=== PATIENT | female | born 1940 | race Caucasian/White ===

== ENCOUNTER 2021-07-28 01:29 | Emergency (ER) | payer MEDICARE, MEDICAID ==
[2021-07-28 01:37] VITALS: BP 144/63; PULSE 67
[2021-07-28] MEDS ORDERED: Lidocaine 1% with EPINEPHrine 1:100,000 50 ML MDV SUBCUT STA (01:55)
== END 2021-07-28 03:50 | disposition home or self-care (01) ==
LOC: JP.ED 01:29
DX: S01.511A Laceration without foreign body of lip, initial encounter (principal); S09.90XA Unspecified injury of head, initial encounter; I10 Essential (primary) hypertension; Z86.16 Personal history of COVID-19; Z79.899 Other long term (current) drug therapy; Z79.82 Long term (current) use of aspirin; Z88.0 Allergy status to penicillin; Z91.018 Allergy to other foods; W01.10XA Fall on same level from slipping, tripping and stumbling with subsequent striking against unspecified object, initial encounter
CPT/HCPCS: 12001; 12011; 70450; 70486; 72125; 99284-25; 99285

== ENCOUNTER 2024-12-19 13:33 | Emergency (ER) | payer MEDICAID, MEDICARE ==
[2024-12-19] MEDS: Ondansetron 4 MG/2 ML SDV IVPUSH ONE (14:40)
[2024-12-19 14:44] LABS: BASOPHILS ABSOLUTE AUTO 0.03 K/uL (0.00-0.10); BASOPHILS PERCENT AUTO 0.4 % (0.1-1.3); EOSINOPHILS ABSOLUTE AUTO 0.01 K/uL (0.00-0.40); EOSINOPHILS PERCENT AUTO 0.1 % (0.0-5.4); IMMATURE GRAN ABSOLUTE AUTO 0.03 K/uL (0.00-0.23); IMMATURE GRAN PERCENT AUTO 0.4 % (0.0-0.7); LYMPHOCYTES ABSOLUTE AUTO 0.48 K/uL (0.8-3.3); LYMPHOCYTES PERCENT AUTO 6.1 % (11.4-47.7); MONOCYTES ABSOLUTE AUTO 0.40 K/uL (0.20-0.90); MONOCYTES PERCENT AUTO 5.1 % (3.3-12.6); NEUTROPHILS ABSOLUTE AUTO 6.91 K/uL (1.0-7.6); NEUTROPHILS PERCENT AUTO 87.9 % (40.0-78.1); PLATELET COUNT,PLT 122 K/uL (130-375); RED BLOOD CELL COUNT 3.99 M/uL (3.77-5.24); WHITE BLOOD CELL COUNT,WBC 7.9 K/uL (3.2-11.0)
[2024-12-19 15:06] LABS: BLOOD UREA NITROGEN,BUN 15.0 mg/dL (7-18); CARBON DIOXIDE,CO2 28.0 mmol/L (21-32); CHLORIDE,CL 90.0 mmol/L (100-108); CREATININE 0.9 mg/dL (0.6-1.0); EST CRCL DRUG DOSING (CG) 39.87 mL/min; ESTIMATED GFR 64.0 mL/min (>60); GLUCOSE RANDOM 129.0 mg/dL (74-106); POTASSIUM,K 3.8 mmol/L (3.6-5.2); SODIUM,NA 129.0 mmol/L (140-148); TROPONIN I HIGH SENSITIVITY 28.5 pg/mL (<=60.3)
[2024-12-19] MEDS: Sodium Chloride 0.9% 10 ML Syringe FLUSH ONE (16:33)
[2024-12-19] MEDS: Iopamidol 612 MG/ML 100 ML Bottle IV PRN (16:33)
[2024-12-19] MEDS: diphenhydrAMINE 50 MG/ML SDV IVPUSH ONE (17:20)
[2024-12-20] MEDS: Fluconazole/Normal Saline 200 MG in Premix Bag 1 BAG IV ONE (00:15)
[2024-12-20] MEDS: Acetaminophen 1,000 MG in Premix Bag 1 BAG IV ONE (00:40)
[2024-12-20 01:02] VITALS: BP 156/78; PULSE 70
== END 2024-12-20 00:59 | disposition other institution (70) ==
LOC: JP.ED 13:33
DX: J98.2 Interstitial emphysema (principal); I10 Essential (primary) hypertension; Z88.0 Allergy status to penicillin; Z91.018 Allergy to other foods; Z79.899 Other long term (current) drug therapy
CPT/HCPCS: 36415; 71045; 71260; 80048; 83605; 84484; 85025; 96361; 96365; 96367; 96374; 96375; 96376; 99285; A9270; J0131; J1200; J1450; J2185; J2270; J2405; J2470; J2550; J7030; Q9967; J1171